=== PATIENT | male | born 1965 | race Caucasian/White ===

== ENCOUNTER 2025-06-02 10:33 | Emergency (ER) | payer MEDICAID, OTHER ==
[~2025-06-02] VITALS: Ht 170.2 cm; Wt 91.0 kg
[2025-06-02 10:35] VITALS: O2SAT 96
[2025-06-02] MEDS: METHOCARBAMOL 500MG TABLET PO ONE (11:23)
[2025-06-02] MEDS: IBUPROFEN 400MG TABLET PO ONE (11:24)
[2025-06-02] MEDS ORDERED: METH-653 MT (12:42)
[2025-06-02] MEDS ORDERED: IBUP-2028 MT (12:42)
[2025-06-02] MEDS ORDERED: LIDO-53 TP (12:43)
[2025-06-02 13:40] VITALS: BP 111/65; PULSE 58; RESP 18; TEMP 36.8; O2SAT 96
== END 2025-06-02 13:45 | disposition home or self-care (01) ==
LOC: ER 10:33
DX: R07.81 Pleurodynia (principal); I10 Essential (primary) hypertension; Z79.899 Other long term (current) drug therapy; V89.2XXA Person injured in unspecified motor-vehicle accident, traffic, initial encounter; Y93.89 Activity, other specified; Y92.89 Other specified places as the place of occurrence of the external cause; Y99.8 Other external cause status
CPT/HCPCS: 71101; 93005; 99283